=== PATIENT | female | born 1985 | race Two or more races ===

== ENCOUNTER 2019-07-24 11:55 | Emergency (ER) | payer SELFPAY ==
[2019-07-24] MEDS ORDERED: ACETAMINOPHEN 325 MG TABLET PO ONE (12:17)
--- NOTE | 2019-07-24 12:21 | ER Document Report ---
ED Medical Screen (RME) - General Chief Complaint: Vag Bleeding, +preg <12wks Stated Complaint: VAGINAL BLEEDING Time Seen by Provider: 07/24/19 12:03 Mode of Arrival: Wheelchair Information source: Patient Notes: 33-year-old female approximately 4 to 6 weeks G2, P1, needs emergency department with reports for abdominal cramping for the past 4 days and vaginal bleeding that started yesterday. Patient reports she drank some tea for the pain. She reports the bleeding was worse yesterday than today. Reports she had no complication with her first . Reports possibly some fever the first day no vomiting or diarrhea or pain with void. Patient speaks primarily Mongolian. Veena baptiste I have greeted and performed a rapid initial assessment of this patient. A comprehensive ED assessment and evaluation of the patient, analysis of test results and completion of the medical decision making process will be conducted by additional ED providers. TRAVEL OUTSIDE OF THE [place] IN LAST 30 DAYS: Yes - Related Data Allergies/Adverse Reactions: No Known Allergies Allergy (Verified 07/24/19 12:18) Past Medical History - Social History Chew tobacco use (# tins/day): No Frequency of alcohol use: None Drug Abuse: None Physical Exam - Vital signs Vitals: Temp Pulse Resp BP Pulse Ox 98.4 F 87 20 135/91 H 99 07/24/19 11:59 07/24/19 11:59 07/24/19 11:59 07/24/19 11:59 07/24/19 11:59 Course - Vital Signs Vital signs: Temp Pulse Resp BP Pulse Ox 98.4 F 87 20 135/91 H 99 07/24/19 11:59 07/24/19 11:59 07/24/19 11:59 07/24/19 11:59 07/24/19 11:59
[2019-07-24 12:58] LABS: ABSOLUTE EOSINOPHILS # (AUTO) 0.2 10^3/uL (0.0-0.6); ABSOLUTE LYMPHOCYTES (AUTO) 1.7 10^3/uL (0.5-4.7); ABSOLUTE MONOCYTES (AUTO) 0.3 10^3/uL (0.1-1.4); ABSOLUTE NEUT (AUTO) 2.4 10^3/uL (1.7-8.2); BASOPHILS % (AUTO) 0.8 % (0-2); EOSINOPHILS % (AUTO) 3.3 % (0-6); HEMATOCRIT 39.6 % (36.0-47.0); HEMOGLOBIN 13.2 g/dL (12.0-15.5); LYMPHOCYTES % (AUTO) 36.4 % (13-45); MEAN CORPUSCULAR HEMOGLOBIN 28.6 pg (27.0-33.4); MEAN CORPUSCULAR HGB CONC 33.5 g/dL (32.0-36.0); MEAN CORPUSCULAR VOLUME 85 fl (80-97); MONOCYTES % (AUTO) 7.1 % (3-13); PLATELET COUNT 206 10^3/uL (150-450); RED BLOOD COUNT 4.64 10^6/uL (3.72-5.28); RED CELL DISTRIBUTION WIDTH 14.3 % (11.5-14.0); SEGMENTED NEUTROPHILS % (AUTO) 52.4 % (42-78); TOTAL CELLS COUNTED % (AUTO) 100 %; WHITE BLOOD COUNT 4.7 10^3/uL (4.0-10.5)
[2019-07-24 13:02] LABS: APPEARANCE,URINE SLIGHTLY-CLOUDY; BILIRUBIN,URINE NEGATIVE (NEGATIVE); COLOR,URINE YELLOW; GLUCOSE, URINE NEGATIVE (NEGATIVE); KETONES,URINE NEGATIVE (NEGATIVE); LEUKOCYTE ESTERASE,URINE MODERATE (NEGATIVE); NITRITE,URINE NEGATIVE (NEGATIVE); PROTEIN,URINE 30 mg/dL (NEGATIVE); URINE SPECIFIC GRAVITY 1.024; UROBILINOGEN,URINE NEGATIVE mg/dL (<2.0)
[2019-07-24 13:15] LABS: ALBUMIN 4.4 g/dL (3.5-5.0); ALKALINE PHOSPHATASE 55 U/L (38-126); ANION GAP 8 (5-19); ASPARTATE AMINO TRANSFERASE 27 U/L (14-36); BILIRUBIN,TOTAL 1.1 mg/dL (0.2-1.3); BLOOD UREA NITROGEN 7 mg/dL (7-20); CALCIUM 9.5 mg/dL (8.4-10.2); CARBON DIOXIDE 27 mmol/L (22-30); CHLORIDE 106 mmol/L (98-107); GLUCOSE 112 mg/dL (75-110); POTASSIUM 3.9 mmol/L (3.6-5.0); TOTAL PROTEIN 7.5 g/dL (6.3-8.2)
--- NOTE | 2019-07-24 13:33 | RADIOLOGY REPORT (SQ) ---
EXAM DESCRIPTION: U/S OB TRANSVAGINAL W/O DOP COMPLETED DATE/TIME: 07/24/2019 1:12 pm REASON FOR STUDY: preg vag bleed abd pain COMPARISON: None. TECHNIQUE: Transvaginal static and realtime grayscale images acquired of the pelvis. Additional brice cted spectral and color Doppler images recorded. All images stored on PACs. bHCG: Pending. CLINICAL DATES: LMP 06/09/2019. 6 weeks 3 days. LIMITATIONS: None. FINDINGS: No intrauterine gestational sac is seen. There is mild endometrial thickening. UTERUS: There appears to be a 7 mm fibroid. CERVICAL LENGTH: 1.6 cm. Closed. RIGHT ADNEXA: Normal ovary with normal vascular flow. 3.8 x 3.3 x 3 cm simple cyst. No adnexal free fluid. No adnexal masses. LEFT ADNEXA: Normal ovary with normal vascular flow. No adnexal free fluid. No adnexal masses. FREE FLUID: None. OTHER: No other significant finding. IMPRESSION: 1. There is no intrauterine gestation at this time. Follow-up as clinically indicated. 2. There is a small uterine fibroid. 3. There is a 3.8 cm cyst on the right ovary. This is almost certainly benign. No additional imagi ng is required for this. TECHNICAL DOCUMENTATION: JOB ID: [id number]- All Rights Reserved rev-12/15 Reading location - IP/workstation name: [email or web address]
--- NOTE | 2019-07-24 15:03 | ER Document Report ---
ED GI/ - General Chief Complaint: Vag Bleeding, +preg <12wks Stated Complaint: VAGINAL BLEEDING Time Seen by Provider: 07/24/19 12:03 Mode of Arrival: Wheelchair Notes: 33-year-old G2, P1 [place]-speaking female presents to the emergency department with vaginal bleeding and lower abdominal pain. Patient states that the lower abdominal pain started 3 days ago unilateral to the right side and got acutely worse last night where she started to have some spotting. She said it was just light spotting and she did pass some clots. Denies any fevers or chills, denies shortness of breath, denies any urinary symptoms. Denies any foul-smelling vaginal discharge TRAVEL OUTSIDE OF THE [place] IN LAST 30 DAYS: Yes - Related Data Allergies/Adverse Reactions: No Known Allergies Allergy (Verified 07/24/19 12:18) Past Medical History - General Information source: Patient - Social History Smoking Status: Never Smoker Chew tobacco use (# tins/day): No Frequency of alcohol use: None Drug Abuse: None Family History: None Patient has suicidal ideation: No Patient has homicidal ideation: No Review of Systems - Review of Systems Constitutional: See HPI EENT: No symptoms reported Cardiovascular: See HPI Respiratory: See HPI Gastrointestinal: See HPI Genitourinary: See HPI Female Genitourinary: See HPI Musculoskeletal: No symptoms reported Skin: No symptoms reported Hematologic/Lymphatic: No symptoms reported Neurological/Psychological: No symptoms reported Physical Exam - Vital signs Vitals: Temp Pulse Resp BP Pulse Ox 98.4 F 87 20 135/91 H 99 07/24/19 11:59 07/24/19 11:59 07/24/19 11:59 07/24/19 11:59 07/24/19 11:59 - Notes Notes: PHYSICAL EXAMINATION: Reviewed vital signs and charting by RN GENERAL: Alert, interacts well. No acute distress. HEAD: Normocephalic, atraumatic. EYES: Pupils equal and round. Extraocular movements intact. ENT: Oral mucosa moist, tongue midline. NECK: Full range of motion. Trachea midline. LUNGS: Clear to auscultation bilaterally, no wheezes, rales, or rhonchi. No respiratory distress. HEART: Regular rate and rhythm. No murmur ABDOMEN: soft, right lower quadrant tenderness to palpation. No distention. Bowel sounds present EXTREMITIES: Moves all 4 extremities spontaneously. No edema, No cyanosis. PSYCH: Normal affect, normal mood. SKIN: Warm, dry, normal turgor. No rashes or lesions noted. Course - Re-evaluation Re-evalutation: 07/24/19 15:31 Patient presents she states approximately 12 days , LMP June 09, 2019. Patient was spotting since yesterday and the transvaginal ultrasound did not show a gestational sac in the uterus and did not show evidence of an ectopic . She did have a right sided ovarian cyst which could potentially explain her pain pattern. Patient's vital signs were all within normal limits, she is afebrile, no leukocytosis, so I have very low suspicion for an append icitis. Patient was instructed to return here in 3 days for repeat hCG. I explained to her that she could be too early in or she could potentially be miscarrying so we need to trend the hCG. Veena was used in translation and all of her questions were answered. She is stable for [facility]. - Vital Signs Vital signs: Temp Pulse Resp BP Pulse Ox 98.4 F 87 20 135/91 H 99 07/24/19 11:59 07/24/19 11:59 07/24/19 11:59 07/24/19 11:59 07/24/19 11:59 - Laboratory Result Diagrams: 07/24/19 12:30 07/24/19 12:30 Laboratory results interpreted by me: 07/24/19 07/24/19 07/24/19 12:25 12:30 12:30 RDW 14.3 H Glucose 112 H Beta HCG, Quant 58.18 H Urine Protein 30 H Urine Blood MODERATE H Ur Leukocyte Esterase MODERATE H Discharge - Discharge Clinical Impression: Vaginal bleeding before 22 weeks gestation Condition: Stable Disposition: HOME, SELF-CARE Additional Instructions: You were seen for vaginal bleeding during . The ultrasound did not show a gestational sac in the uterus but it could be too early in or it is possible that you are miscarrying. Because of that, you need to come back to the emergency department in 72 hours to get a repeat hCG. Please return on Monday to get a repeat hCG Please return to the emergency department if you have worsening, severe lower abdominal pain, heavy vaginal bleeding causing dizziness, lightheadedness, or passing out, acute shortness of breath, or you have any other concerning symptoms. Also, your urine shows findings consistent with a urinary tract infection. Please take all the antibiotics as directed even if your symptoms have improved. Please follow-up with your primary care physician as needed. Return to emergency room if you develop fever >101F, persistent vomiting, become let hargic, have severe pain in your sides, or any other symptoms that are concerning to you. a vieron por sangrado vaginal christopher el embarazo. La ecografa no mostr un saco gestacional en el tero, emily podra ser demasiado temprano en el embarazo o es posible que est teniendo un aborto espontneo. Debido a eso, debe volver al departamento de emergencias en 72 horas para recibir lai repeticin de hCG. Regrese el sbado para obtener lai repeticin de hCG Regrese al departamento de emergencias si tiene empeoramiento, dolor intenso en la parte baja del abdomen, sangrado vaginal abundante que causa mareos, aturdimiento o desmayo, dificultad para respirar aguda o si tiene algn otro sntoma preocupante. Adems, [place] orina muestra hallazgos consistentes con lai infeccin del tracto urinario. [place] todos los antibiticos segn las indicaciones, incluso si alley sntomas lovell osmin. Josseline un seguimiento con [place] mdico de atencin primaria segn sea necesario. Regrese a la dasha de emergencias si presenta fiebre> 101F, vmitos persistentes, letargia, dolor intenso en los costados o cualquier otro sntoma que le preocupe. Forms: Follow-Up Laboratory Testing
[2019-07-24] MEDS ORDERED: CEFTRIAXONE INJ 1000 MG VIAL IM ONE (15:05)
[2019-07-24] MEDS ORDERED: LIDOCAINE 1% INJ (10 MG/ML) 10 ML MDV INJ ONE (15:06)
[2019-07-24] MEDS ORDERED: ACETAMINOPHEN SOLN 325 MG/10.15 ML UDCUP PO ONE (15:15)
[2019-07-24 16:11] VITALS: BP 105/68
== END 2019-07-24 16:09 | disposition home or self-care (01) ==
LOC: ER 11:55
DX: O20.9 Hemorrhage in early pregnancy, unspecified (principal); O34.81 Maternal care for other abnormalities of pelvic organs, first trimester; N83.291 Other ovarian cyst, right side; O26.891 Other specified pregnancy related conditions, first trimester; R10.30 Lower abdominal pain, unspecified; R10.813 Right lower quadrant abdominal tenderness; Z3A.01 Less than 8 weeks gestation of pregnancy
CPT/HCPCS: 99284; 96372; 96374; 86900; 86901; 36415; 84702; 85025; 80053; 81001; 76817; J0696; J3490